=== PATIENT | female | born 1995 | race Caucasian/White ===

== ENCOUNTER 2020-02-03 09:59 | Emergency (ER) | payer OTHER ==
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
== END 2020-02-03 10:27 | disposition home or self-care (01) ==
LOC: DL.ED 09:59
DX: S16.1XXA Strain of muscle, fascia and tendon at neck level, initial encounter (principal); G44.319 Acute post-traumatic headache, not intractable; Z79.899 Other long term (current) drug therapy; V43.52XA Car driver injured in collision with other type car in traffic accident, initial encounter
CPT/HCPCS: 99283